=== PATIENT | male | born 1980 | race Caucasian/White ===

== ENCOUNTER 2023-10-21 13:21 | Emergency (ER) | payer OTHER, SELFPAY ==
[2023-10-21 13:22] VITALS: BP 144/100
[2023-10-21 13:58] LABS: % Basophils 0.8 % (0-2); % Eosinophils 1.8 % (0-6); % Immature Granulocytes 1.1 % (0-0.5); % Lymphocytes 27.7 % (20.5-51.1); % Monocytes 8.9 % (1.7-9.3); % Neutrophils 59.7 % (42.2-75.2); Absolute Basophils 0.1 10^3/uL (0-0.2); Absolute Eosinophils 0.1 10^3/uL (0-0.7); Absolute Immature Granulocytes 0.1 10^3/uL (0-0.05); Absolute Lymphocytes 1.8 10^3/uL (1.2-3.4); Absolute Monocytes 0.6 10^3/uL (0.1-0.6); Hematocrit 41.4 % (39.0-52.0); Hemoglobin 14.8 g/dL (13.0-18.0); Mean Corp Hgb Conc. 35.7 g/dL (33.0-37.0); Mean Corpuscular Volume 83.8 fL (80.0-94.0); Mean Platelet Volume 11.1 fL (7.4-10.4); Nucleated Red Blood Cells % 0 % (-); Platelet Count 218 10^3/uL (130-400); Red Blood Cell Count 4.94 10^6/uL (4.70-6.10); Red Cell Dist. Width 13.5 % (11.5-14.5); White Blood Cell Count 6.6 10^3/uL (4.8-10.8)
[2023-10-21 14:09] LABS: Blood Urea Nitrogen 14 mg/dl (9-20); Calcium 9.5 mg/dl (8.4-10.2); Carbon Dioxide 25 mmol/L (22-30); Chloride 106 mmol/L (98-107); Glucose 94 mg/dl (70-99); Sodium 138 mmol/L (135-145); eGFR > 60.00
[2023-10-21 14:33] VITALS: BP 104/77
--- NOTE | 2023-10-21 14:56 | ED.GENMED ---
History of Present Illness
General
Chief Complaint: Heart Rate Problem
Source: patient
Exam Limitations: none
Time Seen by Provider: 10/21/23 14:30
Nursing documentation reviewed up to this point in time: agreed with
History of Present Illness
History of Present Illness:
43-year-old male with no reported chronic medical issues presents to the emergency room for evaluation of palpitations. Patient reports that he has been dealing with occasional palpitations for over a year but over the past month he has near daily
episodes of palpitations. Today he said he finally decided to come in to have it evaluated given the persistence. He says that he does not get significant symptoms snoring�he says that he is aware of the palpitations but does not feel dizzy, short
of breath, chest pain or any other issues. He otherwise has been feeling well. He denies any known cardiac history. He denies any current drug use but does report a distant history (10 years) of methamphetamine use. He denies smoking. Reports
occasional alcohol. He does admit that he drinks a significant amount of caffeine daily�'I drink more caffeine than water.' He estimates that he has at least three 20 ounce coffees daily and multiple energy drinks.
Review of Systems
Review of Systems
All Other Systems: ROS reviewed and negative except as documented in HPI and ROS
Constitutional: Denies fever
Respiratory: Denies trouble breathing
Cardiac: Reports palpitations; Denies chest pain or syncope
ABD/GI: Denies abdominal pain or nausea
: Denies flank pain
Musculoskeletal: Denies neck pain or back pain
Neurological: Denies dizzy or headache
Phy Exam
Physical Exam
Physical Exam:
General: Awake, alert, oriented x3; no acute distress
Head: Normocephalic, atraumatic
Eyes: Conjunctiva normal
Throat: Airway intact, handling secretions
Neck: Trachea midline, supple without meningismus
Lungs: Clear to auscultation bilaterally, no wheezing, rales, rhonchi
Heart: Regular rate and rhythm, no murmurs, gallops, or rubs, no appreciable ectopy
Abd: Soft, non distended, nontender
Neuro: No gross deficits
Skin: no rash
Extremities: No edema in extremities, equal pulses in all extremities
Scores
Heart Failure Risk
Heart Failure Risk Score: Not Applicable
Heart Score for Chest Pain Patients
STEMI patient?: Not applicable
Withdrawal Assessment of Alcohol
Withdrawal Assessment Completed?: Not applicable
Course
Orders/Labs/Results
Orders:
Orders
10/21/23 13:26
Electrocardiogram (*1) Urgent
Reason for Study: Palpitations
EKG- Treatment ONCE
10/21/23 13:34
Basic Metabolic Panel Urgent
Complete Blood Count/With Diff Urgent
10/21/23 14:31
TSH Reflex To Free T4 Urgent
10/21/23 14:32
Add On- LAB Urgent
Tests Added?: TSH
Abnormal Lab Results
10/21/23
13:34
MPV 11.1 H fL
(7.4-10.4)
Abs Immat Gran (auto) 0.1 H 10^3/uL
(0-0.05)
Immature Gran % 1.1 H %
(0-0.5)
10/21/23 13:34
10/21/23 13:34
Vital Signs
Initial and Last Documented VS:
Initial Vital Signs
Temp Pulse Resp BP Pulse Ox
36.9 C 74 18 144/100 96
10/21/23 13:22 10/21/23 13:22 10/21/23 13:22 10/21/23 13:22 10/21/23 13:22
Last Documented Vital Signs
Temp Pulse Resp BP Pulse Ox
36.9 C 74 15 104/77 98
10/21/23 13:22 10/21/23 14:45 10/21/23 14:45 10/21/23 14:33 10/21/23 14:45
MDM/Problems Addressed
Differential Diagnosis Includes:
PVCs, PACs, A-fib/flutter, anxiety
MDM/Problems Addressed:
43-year-old male presents for evaluation of palpitations that have been ongoing for the past year but more frequent over the past month. No other symptoms. He does admit to heavy caffeine use. Hypertensive in triage normalized by my assessment,
rest of vitals normal. EKG shows sinus rhythm with no ectopy, no delta wave, no Brugada, normal QTc. Will check basic labs, thyroid studies. Will monitor on telemetry. Reassess after the above.
Reviewed telemetry strips and patient is having frequent PVCs�these have been scanned into the medical record. Correlates with symptoms. Reviewed basic labs which show no clinically significant abnormality. Suspect PVCs likely exacerbated by
heavy caffeine use. He is minimally symptomatic, advised to decrease caffeine use. Will refer to cardiology as needed if PVCs do not improve with decreasing caffeine intake. He feels comfortable with this plan. Spoke about return precautions all
questions answered.
*Pulse Oximetry
Patient hypoxic: no
*EKG
Interpreted by ED Provider?: Yes
Heart Rate: 67
Rate: normal
Rhythm: sinus
[place]: normal axis
Interval: normal interval
QRS Pattern: normal QRS
Ischemia: no ischemia
*Critical Care Note
Total Time (30-74mins, 75-104mins- exclusive of procedures): Not Applicable
Data Reviewed
Source: patient
Prescriptions/Medications Considered But Not Given:
Considered starting Toprol for frequent PVCs but given his heavy caffeine intake I think it is reasonable to start with lifestyle adjustment prior to starting medication
ED Attending Note
-
Portions of this chart may have been created with voice recognition software.� Occasional wrong word or��sound alike� substitutions may have occurred due to the inherent limitations of voice recognition software.
Discharge Plan
Departure
Patient Disposition: Home (Routine Discharge)
Date of Disposition: 10/21/23
Time of Disposition: 14:55
Patient with high blood pressure during this ER visit?: Yes
Discharge Problem:
Heart palpitations, PVC's (premature ventricular contractions)
Instructions: Ventricular premature beats, Palpitations (DC)
Referrals:
Darinel Oneal MD [Active] - As needed
Activity Restrictions/Additional Instructions:
Thank you for visiting the Emergency Department at [facility] [place].
1. Please schedule a follow up appointment as directed. Call first thing tomorrow morning to make an appointment.
2. If indicated, please take your medications as instructed and indicated on discharge paperwork.
3. If any of your symptoms do not improve, or persist, or become more severe within 6-12 hours, please return to the emergency department for further care.
4. Please return to the emergency department if you develop a headache, neck pain/stiffness, fever greater than 100.4F, chest pain, shortness of breath, persistent nausea, vomiting, slurred speech, difficulty walking, numbness/tingling, weakness,
signs of infection or any other symptoms that are worrisome to you.
Please call [phone] if you have any questions.
Interventions
Interventions:
*Risk Screen - Suicide Last Done: 10/21/23 13:22
*General Assessment Last Done: 10/21/23 13:22
*Neglect/Abuse Screening Last Done: 10/21/23 13:22
ED- Fall Risk Assessment Last Done: 10/21/23 14:55
ED- Cardiac Assessment Last Done: 10/21/23 14:55
ED- Pulmonary Assessment Last Done: 10/21/23 14:55
Discharge Date and Time
Print Language: PASHTO
[2023-10-21 16:30] LABS: TSH 0.58 uIU/ml (0.47-4.68)
== END 2023-10-21 15:23 | disposition home or self-care (01) ==
LOC: EMR 13:21
PROVIDERS: Emergency Medicine; EMERGENCY PHYSICIAN Emergency Medicine; FAMILY PHYSICIAN Family Medicine
DX: R00.2 Palpitations (principal); I49.3 Ventricular premature depolarization
CPT/HCPCS: 99284; 80048; 84443; 85025; 93005

== ENCOUNTER 2024-01-29 14:56 | Emergency (ER) | payer OTHER, SELFPAY ==
[2024-01-29 15:01] VITALS: BP 131/70
[2024-01-29 15:17] LABS: % Basophils 0.8 % (0-2); % Eosinophils 2.8 % (0-6); % Immature Granulocytes 0.6 % (0-0.5); % Monocytes 8.8 % (1.7-9.3); Absolute Basophils 0.1 10^3/uL (0-0.2); Absolute Eosinophils 0.2 10^3/uL (0-0.7); Absolute Lymphocytes 1.8 10^3/uL (1.2-3.4); Absolute Monocytes 0.6 10^3/uL (0.1-0.6); Absolute Neutrophils 4.4 10^3/uL (1.4-6.5); Hematocrit 42.3 % (39.0-52.0); Mean Corp Hgb Conc. 35.5 g/dL (33.0-37.0); Mean Corpuscular Hgb 29.4 pg (27.0-31.0); Mean Corpuscular Volume 82.8 fL (80.0-94.0); Mean Platelet Volume 10.8 fL (7.4-10.4); Nucleated Red Blood Cells % 0 % (-); Platelet Count 261 10^3/uL (130-400); Red Blood Cell Count 5.11 10^6/uL (4.70-6.10); Red Cell Dist. Width 12.9 % (11.5-14.5); White Blood Cell Count 7.1 10^3/uL (4.8-10.8)
[2024-01-29 15:30] LABS: ALT (SGPT) 25 U/L (0-50); AST (SGOT) 26 U/L (17-59); Albumin 4.3 g/dl (3.5-5.0); Alkaline Phosphatase 47 U/L (38-126); Blood Urea Nitrogen 13 mg/dl (9-20); Calcium 9.5 mg/dl (8.4-10.2); Carbon Dioxide 26 mmol/L (22-30); Chloride 103 mmol/L (98-107); Glucose 106 mg/dl (70-99); Potassium 4.1 mmol/L (3.5-5.1); Sodium 139 mmol/L (135-145); Total Bilirubin 0.4 mg/dl (0.2-1.3); Total Protein 6.9 g/dl (6.3-8.2); eGFR > 60.00
[2024-01-29 15:41] LABS: Troponin I < 0.012 ng/ml
== END 2024-01-29 18:40 ==
LOC: EMR 14:56
PROVIDERS: EMERGENCY PHYSICIAN Emergency Medicine
DX: I49.9 Cardiac arrhythmia, unspecified (principal); Z53.21 Procedure and treatment not carried out due to patient leaving prior to being seen by health care provider
CPT/HCPCS: 99281; 80053; 84484; 85025; 93005